=== PATIENT | female | born 1990 | race Caucasian/White ===

== ENCOUNTER 2021-03-07 09:11 | Emergency (ER) | payer BC ==
[~2021-03-07] VITALS: Ht 162.5 cm; Wt 95.3 kg
[~2021-03-07 09:11] MED LIST: ALBU8.5H2 IH; D-ME118S33 PO
[2021-03-07] MEDS ORDERED: LACTATED RINGERS 1,000 ML IV ONE (10:15)
[2021-03-07] MEDS ORDERED: ONDANSETRON 4 MG/2 ML (SDV) Z0FRAN IVP ONE (10:30)
[2021-03-07 10:36] LABS: CLARITY,URINE CLEAR; COLOR,URINE YELLOW; GLUCOSE, URINE (UA) NEGATIVE (NEGATIVE); KETONES,URINE 2+ (NEGATIVE); LEUKOCYTE ESTERASE ,URINE TRACE (NEGATIVE); NITRITE,URINE NEGATIVE (NEGATIVE); PROTEIN,URINE TRACE (NEGATIVE)
[2021-03-07 10:48] LABS: BASOPHILS # (AUTO) 0.1 10^3/uL (0.0-0.1); BASOPHILS % (AUTO) 0 % (0-10); EOSINOPHILS % (AUTO) 0 % (0-10); HEMATOCRIT 43 % (35-52); HEMOGLOBIN 14.8 g/dL (11.5-16.0); LYMPHOCYTES # (AUTO) 1.2 10^3/uL (1.0-4.0); LYMPHOCYTES % (AUTO) 10 % (12-44); MEAN CORPUSCULAR HEMOGLOBIN 28 pg (25-34); MEAN CORPUSCULAR HGB CONC 35 g/dL (32-36); MEAN CORPUSCULAR VOLUME 81 fL (80-99); MONOCYTES # (AUTO) 0.5 10^3/uL (0.0-1.0); MONOCYTES % (AUTO) 4 % (0-12); NEUTROPHILS # (AUTO) 10.4 10^3/uL (1.8-7.8); NEUTROPHILS % (AUTO) 85 % (42-75); PLATELET COUNT 243 10^3/uL (130-400); WHITE BLOOD COUNT 12.2 10^3/uL (4.3-11.0)
[2021-03-07 10:50] LABS: AMORPHOUS SEDIMENT,UR FEW AMOR URATES /LPF; BACTERIA,URINE MODERATE /HPF; BILIRUBIN,URINE 1+ (NEGATIVE); RBC,URINE RARE /HPF
--- NOTE | 2021-03-07 10:52 | ED General ---
General Chief Complaint: General Problems/Pain Stated Complaint: RLQ PAIN, N/V, DEHYDRATION- 7 WKS Nursing Triage Note: PT REPORTS N/V, UNABLE TO KEEP ANYTHING DOWN, CONSTIPATION, 7 WEEKS , ABDOMINAL PAIN, DIZZINESS, WEAKNESS. Source of Information: Patient Exam Limitations: No Limitations History of Present Illness Date Seen by Provider: Mar 07, 2021 Time Seen by Provider: 10:50 Initial Comments Patient is 7 weeks gestation G1, P0. She is had intrauterine confirmed at Dr. [facility]cock[facility] clinic. She presents with nausea and vomiting for the past 3 weeks despite use of pyridoxine and doxylamine. No abdominal pain or vaginal bleeding and she is been unable to eat anything for a couple of days because of the intense nausea. Timing/Duration: 1-2 Days Severity: Moderate Associated Systoms: Denies Symptoms Allergies and Home Medications Allergies Coded Allergies: No Known Drug Allergies (Unverified , 08/30/14) Home Medications Albuterol 8.5 Gm Hfa.aer.ad, 2 PUFF IH Q4H PRN for SHORTNESS OF BREATH 1 PUFFS Prescribed by: FAUZIA DIXON on 08/30/14 1100 Cefuroxime Axetil 500 Mg Tablet, 500 MG PO BID Prescribed by: FAUZIA DIXON on 03/07/21 1201 D-Methorphan Hb/P-Epd Hcl/Bpm 118 Ml Syrup, 5-10 ML PO Q6H PRN for COUGH Prescribed by: FAUZIA DIXON on 08/30/14 1059 Ondansetron 8 Mg Tab.rapdis, 8 MG PO TID Prescribed by: FAUZIA DIXON on 03/07/21 1201 Patient Home Medication List Home Medication List Reviewed: Yes Review of Systems Review of Systems Constitutional: see HPI EENTM: see HPI Respiratory: no symptoms reported Cardiovascular: no symptoms reported Gastrointestinal: nausea, vomiting Genitourinary: no symptoms reported Musculoskeletal: no symptoms reported Skin: no symptoms reported Psychiatric/Neurological: No Symptoms Reported Hematologic/Lymphatic: No Symptoms Reported Immunological/Allergic: no symptoms reported Past Mgcrsqd-Toxdch-Psxpog Hx Patient Social History Tobacco Use?: No Substance use?: No Pt feels they are or have been: No Immunizations Up To Date First/Initial COVID19 Vaccinat: OCTOBER 2020 Second COVID19 Vaccination [place]: NOVEMBER 2020 COVID19 Vaccine 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 oz. 83.958493wq; 36.00 BMI Method: General Appearance: No Apparent Distress, WD/WN Eyes: Bilateral Eye Normal Inspection, Bilateral Eye PERRL, Bilateral Eye EOMI Neck: Full Range of Motion, Normal Inspection Respiratory: No Accessory Muscle Use, No Respiratory Distress Cardiovascular: Regular Rate, Rhythm, Normal Peripheral Pulses Gastrointestinal: Normal Bowel Sounds, Non Tender, Soft Extremity: Normal Capillary Refill, Normal Inspection Neurologic/Psychiatric: Alert, Oriented x3 Skin: Normal Color, Warm/Dry Progress/Results/Core Measures Suspected Sepsis SIRS Temperature: Pulse: 67 Respiratory Rate: 16 Laboratory Tests 03/07/21 10:42: White Blood Count 12.2H Blood Pressure 134 /89 Mean: 104 Laboratory Tests 03/07/21 10:42: Creatinine 0.82, Platelet Count 243, Total Bilirubin 0.7 Results/Orders Lab Results Laboratory Tests Test 03/07/21 10:33 03/07/21 10:42 Range/Units Urine Color YELLOW Urine Clarity CLEAR Urine pH 6.0 5-9 Urine Specific [place] >=1.030 1.016-1.022 Urine Protein TRACE H NEGATIVE Urine Glucose (UA) NEGATIVE NEGATIVE Urine Ketones 2+ H NEGATIVE Urine Nitrite NEGATIVE NEGATIVE Urine Bilirubin 1+ H NEGATIVE Urine Urobilinogen 0.2 < = 1.0 MG/DL Urine Leukocyte Esterase TRACE H NEGATIVE Urine RBC (Auto) NEGATIVE NEGATIVE Urine RBC RARE /HPF Urine WBC 5-10 H /HPF Urine Squamous Epithelial Cells 10-25 H /HPF Urine Crystals PRESENT H /LPF Urine Amorphous Sediment FEW CHIKA URATES H /LPF Urine Bacteria MODERATE H /HPF Urine Casts NONE /LPF Urine Mucus MODERATE H /LPF Urine Culture Indicated YES White Blood Count 12.2 H 4.3-11.0 10^3/uL Red Blood Count 5.28 H 3.80-5.11 10^6/uL Hemoglobin 14.8 11.5-16.0 g/dL Hematocrit 43 35-52 % Mean Corpuscular Volume 81 80-99 fL Mean Corpuscular Hemoglobin 28 25-34 pg Mean Corpuscular Hemoglobin Concent 35 32-36 g/dL Red Cell Distribution Width 13.2 10.0-14.5 % Platelet Count 243 130-400 10^3/uL Mean Platelet Volume 12.0 9.0-12.2 fL Immature Granulocyte % (Auto) 0 % Neutrophils (%) (Auto) 85 H 42-75 % Lymphocytes (%) (Auto) 10 L 12-44 % Monocytes (%) (Auto) 4 0-12 % Eosinophils (%) (Auto) 0 0-10 % Basophils (%) (Auto) 0 0-10 % Neutrophils # (Auto) 10.4 H 1.8-7.8 10^3/uL Lymphocytes # (Auto) 1.2 1.0-4.0 10^3/uL Monocytes # (Auto) 0.5 0.0-1.0 10^3/uL Eosinophils # (Auto) 0.0 0.0-0.3 10^3/uL Basophils # (Auto) 0.1 0.0-0.1 10^3/uL Immature Granulocyte # (Auto) 0.1 0.0-0.1 10^3/uL Sodium Level 137 135-145 MMOL/L Potassium Level 3.7 3.6-5.0 MMOL/L Chloride Level 106 98-107 MMOL/L Carbon Dioxide Level 20 L 21-32 MMOL/L Anion Gap 11 5-14 MMOL/L Blood Urea Nitrogen 9 7-18 MG/DL Creatinine 0.82 0.60-1.30 MG/DL Estimat Glomerular Filtration Rate 82 BUN/Creatinine Ratio 11 Glucose Level 95 70-105 MG/DL Calcium Level 10.4 H 8.5-10.1 MG/DL Corrected Calcium 10.1 8.5-10.1 MG/DL Total Bilirubin 0.7 0.1-1.0 MG/DL Aspartate Amino Transf (AST/SGOT) 13 5-34 U/L Alanine Aminotransferase (ALT/SGPT) 11 0-55 U/L Alkaline Phosphatase 52 40-136 U/L Total Protein 8.0 6.4-8.2 GM/DL Albumin 4.4 3.2-4.5 GM/DL My Orders Orders - FAUZIA DIXON APRN Ceftriaxone (Rocephin) (03/07/21 11:15) Promethazine Injection (Phenergan Injec (03/07/21 12:30) Normal Saline 500 Ml Iv (03/07/21 12:30) Medications Given in ED Current Medications Medications Dose Ordered Sig/Javi Route Start Time Stop Time Status Last Admin Dose Admin Lactated Ringer's 1,000 ml @ 0 mls/hr Q0M ONCE IV 03/07/21 10:15 03/07/21 10:16 DC 03/07/21 10:42 1,000 MLS/HR Ondansetron HCl 8 mg ONCE ONCE IVP 03/07/21 10:30 03/07/21 10:32 DC 03/07/21 10:42 8 MG Vital Signs/I&O 03/07/21 09:50 Temp 36.8 Pulse 67 Resp 16 B/P (MAP) 134/89 (104) Pulse Ox 100 Capillary Refill : Blood Pressure Mean: 104 Departure Impression Primary Impression: Nausea and vomiting during Additional Impression: Urinary tract infection Disposition: 01 HOME, SELF-CARE Condition: Stable Departure-Patient Inst. Decision time for Depature: 11:59 Referrals: ZAHRA BABCOCK MD (PCP/Family) Primary Care Physician Patient Instructions: Nausea and Vomiting, Adult ED Add. Discharge Instructions: . Meds as directed 2. Follow-up with your doctor next week 3. All discharge instructions reviewed with patient and/or family. Voiced understanding. Scripts Promethazine HCl (Promethazine Suppository) 12.5 Mg Supp.rect 12.5 MG RC Q6H PRN for NAUSEA/VOMITING, #10 SUPP.RECT Prov: FAUZIA DIXON APRN 03/07/21 Ondansetron (Ondansetron Odt) 8 Mg Tab.rapdis 8 MG PO TID, #10 TAB Prov: FAUZIA DIXON APRN 03/07/21 Cefuroxime Axetil (Cefuroxime) 500 Mg Tablet 500 MG PO BID, #10 TAB Prov: FAUZIA DIXON APRN 03/07/21 Work/School Note: Work Release Form Date Seen in the Emergency Department: Mar 07, 2021 Return to Work: Mar 09, 2021 FAUZIA DIXON APRN Mar 07, 2021 10:52
[2021-03-07] MEDS ORDERED: cefTRIAXone 1,000 MG in WATER (STERILE) FOR INJECTION 10 ML IV ONE (11:15)
[2021-03-07 11:41] LABS: ALBUMIN 4.4 GM/DL (3.2-4.5); BILIRUBIN,TOTAL 0.7 MG/DL (0.1-1.0); CALCIUM 10.4 MG/DL (8.5-10.1); CREATININE SERUM 0.82 MG/DL (0.60-1.30); POTASSIUM 3.7 MMOL/L (3.6-5.0)
[2021-03-07] MEDS ORDERED: ONDA8TAB13 PO (12:01)
[2021-03-07] MEDS ORDERED: CEFU500T63 PO (12:01)
[2021-03-07] MEDS ORDERED: PROM12.566 RC (12:19)
[2021-03-07] MEDS ORDERED: PROMETHAZINE INJ 25 MG/ML (PHENERGAN) AMP IVP ONE (12:30)
[2021-03-07] MEDS ORDERED: NS IV 500 ML 500 ML IV SCH (12:30)
[2021-03-07 13:15] VITALS: BP 128/80
== END 2021-03-07 13:15 | disposition home or self-care (01) ==
LOC: EDUNIT# 09:11 → ER 09:15
DX: O21.0 Mild hyperemesis gravidarum (principal); O23.41 Unspecified infection of urinary tract in pregnancy, first trimester; Z3A.01 Less than 8 weeks gestation of pregnancy
CPT/HCPCS: 36415; 80053; 81000; 84703; 85025; 87088

== ENCOUNTER → 2021-06-10 | Outpatient (CLI) | payer BC ==
[~2021-06-10] MED LIST changes: +CEFU500T63 PO; +ONDA8TAB13 PO; +PROM12.566 RC
--- NOTE | 2021-06-10 14:46 | Diagnostic Imaging Report ---
INDICATION: survey. TECHNIQUE: Multiple real-time grayscale images were obtained over the gravid uterus. COMPARISON: None. FINDINGS: There is a single live fetus in a cephalic presentation. heart rate was recorded at 142 bpm. Placenta is anterior and appears to be in a marginal location. Amniotic fluid volume is normal. Cervical length is 4.3 cm. kidneys, bladder and stomach are unremarkable. There is a four-chamber heart. There is a 3 vessel cord and normal insertion. brain and spinal anatomy is suboptimal due to position. Biometrical measurements are as follows: Biparietal 4.60 cm, age 20 weeks 0 days. Head circumference 18.07 cm, age 20 weeks 4 days. Abdominal circumference 15.91 cm, age 21 weeks 1 days. Femur length 3.49 cm, age 21 weeks 1 days. Sonographic estimate age: 20 weeks 5 days. Sonographic estimated date of delivery: 10/23/2021. Estimated Weight: 387 gm (+/- 57 gm). LMP percentile: 65%. heart rate: 142 beats per minute. number: 1 of 1. IMPRESSION: Single live IUP 20 weeks 5 days gestational age with estimated date of confinement sonographically of 10/23/2021. There does appear to be a marginal placenta previa. In addition, head and spine anatomy with is suboptimal due to position. Follow-up ultrasound in the later 2nd or early 3rd trimester could be performed for further evaluation. Dictated by: Dictated on workstation # [id number]
== END ==
LOC: RAD 10:00
PROVIDERS: ATTEND Obstetrics & Gynecology
DX: Z34.02 Encounter for supervision of normal first pregnancy, second trimester (principal); Z3A.20 20 weeks gestation of pregnancy
CPT/HCPCS: 76805

== ENCOUNTER → 2021-07-27 | Outpatient (CLI) | payer BC ==
--- NOTE | 2021-07-27 15:14 | Diagnostic Imaging Report ---
INDICATION: Follow-up anatomy and low-lying placenta. TECHNIQUE: Multiple real-time grayscale images were obtained over the gravid uterus. COMPARISON: 06/10/2021. FINDINGS: There is a single live fetus in a cephalic presentation. heart rate was recorded at 150 BPM. Placenta is anterior. Placenta is no longer in a low-lying position. Placental tip is now located approximately 7 cm from the internal cervical os. Cervical length is 4.7 cm. brain and spine anatomy was better visualized today and unremarkable. IMPRESSION: Unremarkable follow-up obstetrical ultrasound. There is no longer evidence of marginal placenta previa. Additional anatomy was better visualized today and unremarkable. Dictated by: Dictated on workstation # [id number]
== END ==
LOC: RAD 14:00
PROVIDERS: ATTEND Obstetrics & Gynecology
DX: O44.22 Partial placenta previa NOS or without hemorrhage, second trimester (principal)
CPT/HCPCS: 76816

== ENCOUNTER 2021-10-17 06:00 | Inpatient (IN) | payer BC ==
[~2021-10-17] VITALS: Ht 162.6 cm; Wt 114.3 kg
[2021-10-17] VITALS (58 sets, daily range): BP systolic 103–142; BP diastolic 52–88
[2021-10-17] MEDS ORDERED: MINERAL OIL 30 ML OIL TOP PRN (07:00)
[2021-10-17] MEDS ORDERED: OXYTOCIN PRE-MIX DRIP 500 ML IV SCH ×2 (07:00→17:45)
--- NOTE | 2021-10-17 07:08 | History & Physical-OB ---
OB - Chief Complaint & HPI Date/Time Date of Admission: Date of Admission: Oct 17, 2021 at 06:01 Date seen by a Provider: Oct 17, 2021 Time Seen by a Provider: 06:40 Chief Complaint/History OB-Reason for Admission/Chief: Induction of Labor Hx : 1 Hx Para: 0 Expected Date of Delivery: Oct 24, 2021 Gestational Age in Weeks: 39 Indication for induction: other Admission Nurse Assessment Rev: Yes History of Labs GBS negative Allergies and Home Medications Allergies Coded Allergies: No Known Drug Allergies (Unverified , 08/30/14) Patient Home Medication List Home Medication List Reviewed: Yes Albuterol (Proair Hfa) 8.5 Gm Hfa.aer.ad, 2 PUFF IH Q4H PRN for SHORTNESS OF BREATH Prescribed by: FAUZIA DIXON on 08/30/14 1100 Cefuroxime Axetil (Cefuroxime) 500 Mg Tablet, 500 MG PO BID Prescribed by: FAUZIA DIXON on 03/07/21 1201 D-Methorphan Hb/P-Epd Hcl/Bpm (Bromfed Dm Cough Syrup) 118 Ml Syrup, 5-10 ML PO Q6H PRN for COUGH Prescribed by: FAUZIA DIXON on 08/30/14 1059 Ondansetron (Ondansetron Odt) 8 Mg Tab.rapdis, 8 MG PO TID Prescribed by: FAUZIA DIXON on 03/07/21 1201 Promethazine HCl (Promethazine Suppository) 12.5 Mg Supp.rect, 12.5 MG RC Q6H PRN for NAUSEA/VOMITING Prescribed by: FAUZIA DIXON on 03/07/21 1219 OB - History Hx of Present Care: Yes Ultrasounds: Normal mid trimester US Obstetrical Complications: None Medical Complications: None Patient Past Medical History No chronic medical problems Immunizations First/Initial COVID19 Vaccine: OCTOBER 2020 Second COVID19 Vaccination: NOVEMBER 2020 OB - Admission Exam Physical Exam Vitals: Vital Signs 10/17/21 06:55 Temp 36.6 Pulse 74 Resp 18 B/P (MAP) 105/65 (78) Pulse Ox 98 O2 Delivery Room Air HEENT: Moist Membranes Heart: Rhythm Normal Lungs: Clear Abdomen: Gravid Extremities: Normal Cervical Dilatation: 2cm Effacement: 50% Station: -3 Membranes: Intact Heart Rate: 140's Accelerations: Accelerations Present Decelerations: No Decelerations Short Term Variability: Present Fdc Variability: Average (6-25) Contractions on Admission: >10 Minutes Apart Intensity: Mild Bautista Scoring Tool (Modified) Dilation (cm): 1-2cm (1) Effacement (%): 31-51% (1) Descent/Station: -3 (0) Cervix Consistency: Medium(1) Cervix Position: Middle/Mid-Position (1) Bautista Score: 4 OB - Assessment/Plan/Diagnosis Assessment Assessment: induction of labor Admission Dx 1. IUP at term 39 weeks Admission Status: Inpatient Order (span 2 midnights) Reason for Inpatient Admission: Induction of labor. Plan Plan: Induction Induction Method: AROM Other Plan -desires epidural -pitocin as necessary AILYN WHITLOCK MD Oct 17, 2021 07:07
[2021-10-17 07:09] LABS: BASOPHILS % (AUTO) 0 % (0-10); EOSINOPHILS # (AUTO) 0.1 10^3/uL (0.0-0.3); EOSINOPHILS % (AUTO) 0 % (0-10); HEMATOCRIT 33 % (35-52); HEMOGLOBIN 10.9 g/dL (11.5-16.0); LYMPHOCYTES # (AUTO) 1.5 10^3/uL (1.0-4.0); LYMPHOCYTES % (AUTO) 13 % (12-44); MEAN CORPUSCULAR HEMOGLOBIN 28 pg (25-34); MEAN CORPUSCULAR HGB CONC 33 g/dL (32-36); MEAN CORPUSCULAR VOLUME 83 fL (80-99); MONOCYTES # (AUTO) 0.6 10^3/uL (0.0-1.0); MONOCYTES % (AUTO) 5 % (0-12); NEUTROPHILS # (AUTO) 9.1 10^3/uL (1.8-7.8); NEUTROPHILS % (AUTO) 80 % (42-75); PLATELET COUNT 179 10^3/uL (130-400); WHITE BLOOD COUNT 11.3 10^3/uL (4.3-11.0)
[2021-10-17] MEDS: D5 LR IV SOLUTION 1,000 ML IV SCH ×2 (07:29→16:12)
[2021-10-17] MEDS ORDERED: fentaNYL 2 mcg/ml BUPIVA 0.125 100 ML ONE (08:27)
[2021-10-17] MEDS ORDERED: fentaNYL INJ 100 MCG/2 ML AMP ONE (08:49)
[2021-10-17] MEDS ORDERED: BUPIVACAINE 0.25% 10 ML (SENSORCAINE) VIAL ONE (08:49)
[2021-10-17] MEDS: EPIDURAL (fentaNYL 2 MCG/ML BUPIVA 0.125%)100 ML BAG EPI PRN ×2 (09:13→16:19)
[2021-10-17] MEDS ORDERED: ONDANSETRON 4 MG/2 ML (SDV) Z0FRAN IV PRN (09:30)
[2021-10-17] MEDS ORDERED: NALOXONE 0.4 MG/ML 1 ML (NARCAN) VIAL IV PRN ×2 (09:30→17:45)
[2021-10-17] MEDS ORDERED: diphenhydrAMINE 50 MG/ML INJ (BENADRYL) IV PRN (09:30)
[2021-10-17] MEDS ORDERED: LACTATED RINGERS 1,000 ML IV SCH (09:30)
[2021-10-17] MEDS ORDERED: CATHETER FLUSH 10 ML SYR IV SCH ×2 (14:00→22:00)
[2021-10-17] MEDS ORDERED: MEPIVACAINE (CARBOCAINE) 2% 50 ML VIAL ONE (16:37)
[2021-10-17] MEDS ORDERED: MINERAL OIL CONCENTRATE 99.9% 15 ML UDC ONE (17:00)
[2021-10-17] MEDS ORDERED: MEASLES,MUMPS,RUBELLA 1 EA INJ SQ ONE (17:45)
[2021-10-17] MEDS ORDERED: WITCH HAZEL(TUCKS) 40 EA JAR TOP PRN (17:45)
[2021-10-17] MEDS ORDERED: TETANUS,DIPTH,PERTUSS P/F (BOOSTRIX) 0.5 ML VIAL IM ONE (17:45)
[2021-10-17] MEDS ORDERED: BENZOCAINE/MENTHOL (DERMOPLAST) 56 ML CAN TP PRN (17:45)
--- NOTE | 2021-10-17 17:53 | OB Labor & Delivery Record ---
L&D History Date of Service Date of Service: Oct 17, 2021 History Expected Date of Delivery: Oct 24, 2021 Gestational Age in Weeks: 39 Hx : 1 Hx Para: 1 Complications Events: Routine care Operative Indications (Cesarea: N/A-Vaginal Delivery Intrapartal Events: None L&D Stage1 Stage One Onset of Labor - Date: Oct 17, 2021 Onset of Labor - Time: 06:40 Monitors and Tracing Monitor Mode: Internal Heart Rate: 130 Monitor Accelerations: Uniform Monitor Decelerations: None Station: -3 Penitentiary Variability: Average (6-10) Short Term Variability: Present Presentation: Vertex Vital Signs VS - Last 72 Hours, by Label 10/17/21 10/17/21 10/17/21 10/17/21 06:55 07:52 08:10 08:25 Temp 36.6 36.6 Pulse 74 74 89 74 Resp 18 16 18 20 B/P (MAP) 105/65 (78) 108/62 (77) 131/74 (93) 128/67 (87) Pulse Ox 98 99 99 98 O2 Delivery Room Air Room Air 10/17/21 10/17/21 10/17/21 10/17/21 09:00 09:03 09:06 09:11 Pulse 95 92 68 83 Resp 18 16 20 16 B/P (MAP) 133/71 (91) 130/72 (91) 126/74 (91) 104/57 (73) Pulse Ox 98 100 98 97 10/17/21 10/17/21 10/17/21 10/17/21 09:15 09:19 09:22 09:25 Pulse 67 72 66 71 Resp 14 18 18 16 B/P (MAP) 107/52 (70) 108/59 (75) 107/57 (74) 103/65 (78) Pulse Ox 100 99 99 93 10/17/21 10/17/21 10/17/21 10/17/21 09:28 09:31 09:35 09:43 Pulse 70 65 67 85 Resp 15 18 B/P (MAP) 103/56 (72) 103/56 (72) 109/63 (78) 110/69 (83) Pulse Ox 100 100 10/17/21 10/17/21 10/17/21 10/17/21 09:47 09:52 09:56 10:01 Pulse 70 79 81 74 B/P (MAP) 111/56 (74) 120/58 (78) 112/61 (78) 106/59 (75) 10/17/21 10/17/21 10/17/21 10/17/21 10:08 10:12 10:17 10:48 Temp 36.8 Pulse 73 65 66 68 Resp 14 B/P (MAP) 109/62 (78) 105/60 (75) 106/60 (75) 108/73 (85) Pulse Ox 98 99 O2 Delivery Room Air 10/17/21 10/17/21 10/17/21 10/17/21 11:04 11:18 11:34 11:49 Pulse 65 68 62 64 B/P (MAP) 109/57 (74) 116/68 (84) 110/62 (78) 113/70 (84) 10/17/21 10/17/21 10/17/21 10/17/21 12:03 12:18 12:35 12:48 Temp 36.9 Pulse 63 71 76 66 Resp 16 B/P (MAP) 113/67 (82) 125/69 (87) 130/70 (90) 117/70 (86) O2 Delivery Room Air 10/17/21 10/17/21 10/17/21 10/17/21 13:05 13:32 13:47 14:03 Pulse 60 73 71 73 B/P (MAP) 123/60 (81) 136/71 (92) 119/63 (81) 111/68 (82) 10/17/21 10/17/21 10/17/21 10/17/21 14:18 14:33 15:00 15:15 Temp 36.8 Pulse 77 79 77 68 Resp 14 B/P (MAP) 115/58 (77) 118/70 (86) 124/78 (93) 123/68 (86) O2 Delivery Room Air Signs of Distress by FHT Signs of Distress none Rupture of Membranes Spontaneous Ruture of Membrane: No Amniotic Membrane Rupture Time: 0640 Amniotic Membrane Fluid Desc.: Clear Vaginal Bleeding Description: None Induction/Anesthesia Epidural Cath Placement - Time: 0903 L&D Stage2 Stage Two Stage II Date: Oct 17, 2021 Stage II Time: 17:21 Monitors and Tracing Monitor Mode: Internal Heart Rate: 140 Monitor Accelerations: Uniform Monitor Decelerations: None Fusing Machine Tender Variability: Average (6-10) Short Term Variability: Present Position: Left Occiput Anterior Presentation: Vertex Signs of Distress by FHT Signs of Distress none Cord Descript/Complications Cord Vessel Description: 3 Vessels Delivery Type Delivery Method: Spontaneous Vaginal Anterior Shoulder: Left Episiotomy/Perineal Laceration Laceraction(s)/Extensions: Yes Episiotomy Description: Midline Sutures Used: Vicryl Condition of Infant Delivery 1 minute Comment: 8 5 minute Comment: 9 Condition of Condition of : Living Exam: No Observed Abnormalities Resuscitation Resuscitation: N/A - Spontaneous Resp L&D Stage3 Stage Three Stage III Date: Oct 17, 2021 Stage III Time: 17:27 Pictocin Pitocin Administration mu/min: 14 Pitocin ml/hr: 14 Placenta Delivery Placenta Delivery: Spontaneous Delivery Summary Summary Estimated blood loss (mL): 200 Condition of Delivery Examined: Cervix Examined Post Hemorrhage: No Intervention Required none AILYN WHITLOCK MD Oct 17, 2021 17:53
[2021-10-17] MEDS: IBUPROFEN 600 MG (MOTRIN) TAB PO SCH (19:24)
[2021-10-18 03:07] VITALS: BP 133/89
[2021-10-18] MEDS: IBUPROFEN 600 MG (MOTRIN) TAB PO SCH ×3 (03:08→15:21)
[2021-10-18] MEDS: ACETAMINOPHEN 500 MG TAB (TYLENOL) PO SCH ×4 (04:32→16:00)
[2021-10-18 06:14] LABS: BASOPHILS % (AUTO) 0 % (0-10); EOSINOPHILS % (AUTO) 0 % (0-10); HEMATOCRIT 28 % (35-52); HEMOGLOBIN 9.2 g/dL (11.5-16.0); LYMPHOCYTES # (AUTO) 1.7 10^3/uL (1.0-4.0); LYMPHOCYTES % (AUTO) 12 % (12-44); MEAN CORPUSCULAR HEMOGLOBIN 28 pg (25-34); MEAN CORPUSCULAR HGB CONC 33 g/dL (32-36); MEAN CORPUSCULAR VOLUME 84 fL (80-99); MEAN PLATELET VOLUME 12.4 fL (9.0-12.2); MONOCYTES # (AUTO) 0.7 10^3/uL (0.0-1.0); MONOCYTES % (AUTO) 5 % (0-12); NEUTROPHILS # (AUTO) 11.4 10^3/uL (1.8-7.8); NEUTROPHILS % (AUTO) 82 % (42-75); PLATELET COUNT 157 10^3/uL (130-400)
--- NOTE | 2021-10-18 07:15 | Discharge Inst-Women's Service ---
Discharge Inst-Women's Serv Depart Medication/Instructions New, Converted or Re-Newed RX: Other (none transmitted) Instructions Continue with vitamin for 1 month. May have tylenol or ibuprofen for discomfort. Use Ibuprofen over the counter 2-3 tabs every 6 hours for cramps or pain Problems Reviewed?: Yes Consults/Follow Up Additional Follow Up: Yes (Dr Whitlock in 6 weeks.) Activity Activity: Activity as Tolerated Driving Instructions: No Driving for 1 Week Nothing Inside Vagina: No [place] (for 6 weeks.) Diet Discharge Diet: Regular Diet Return to The Hospital For: as below Symptoms to Report to : Bleeding Excessive, Pain Increased, Fever Over 101 Degrees F, Vaginal Discharge Foul For Any Problems or Questions: Contact Your Physician AILYN WHITLOCK MD Oct 18, 2021 07:15
--- NOTE | 2021-10-18 07:21 | Discharge Summary ---
Diagnosis/Chief Complaint Date of Admission Oct 17, 2021 at 06:01 Date of Discharge Discharge Date: Oct 18, 2021 Discharge Time: 1800 Admission Diagnosis Admission Diagnosis 1. Intrauterine at 39 weeks gestation Discharge Diagnosis 1. Intrauterine at 39 weeks gestation 2. Anemiapregnancy related Reason Hospital Visit 31-year-old 1 now term 1 who initially presented to labor and delivery at 39 weeks gestation for induction of labor in the morning of October 17, 2021. Patient had due date of October 24, 2021. care essentially unremarkable. Group B strep status was negative at 36 weeks Discharge Summary-OBS Procedures 1. Epidural per anesthesia 2. Spontaneous vaginal delivery 3. Repair of midline episiotomy Discharge Physical Examination Allergies: Coded Allergies: No Known Drug Allergies (Unverified , 08/30/14) Vitals & I&Os Vital Signs Date Time Temp Pulse Resp B/P (MAP) Pulse Ox O2 Delivery O2 Flow Rate FiO2 10/18/21 03:07 65 18 133/89 (104) 100 Room Air 10/17/21 23:35 36.7 General Appearance: Alert Respiratory: Clear to Auscultation Cardiovascular: Regular Rate Abdominal: Soft (with uterus firm) Hospital Course Was the Problem List Reviewed?: Yes following admission on October 17, 2021 patient underwent routine antepartum orders. She received amniotomy in the a.m. of October 17, 2021. She required Pitocin augmentation. Also epidural was given in the morning by anesthesia and patient had excellent pain relief. Once the completion she was allowed to push and eventually she delivered over a midline episiotomy a term viable female. received Apgars of 8 at 1 minute and 9 at 5 minutes. Following delivery patient underwent routine care orders. She complained of slight tenderness of the perineum in the morning of October 18. Her bleeding was well controlled. Hemoglobin noted to be 9.2 compared to admission of 10.9. Ultimately she was felt ready for dismissal in the early evening of October 18, 2021. She will follow-up with Dr. Whitlock in 6 weeks. Pending Labs Laboratory Tests 10/18/21 05:28: White Blood Count 14.0, Red Blood Count 3.29, Hemoglobin 9.2, Hematocrit 28, Mean Corpuscular Volume 84, Mean Corpuscular Hemoglobin 28, Mean Corpuscular Hemoglobin Concent 33, Red Cell Distribution Width 14.4, Platelet Count 157, Mean Platelet Volume 12.4, Immature Granulocyte % (Auto) 1, Neutrophils (%) (Auto) 82, Lymphocytes (%) (Auto) 12, Monocytes (%) (Auto) 5, Eosinophils (%) (Auto) 0, Basophils (%) (Auto) 0, Neutrophils # (Auto) 11.4, Lymphocytes # (Auto) 1.7, Monocytes # (Auto) 0.7, Eosinophils # (Auto) 0.0, Basophils # (Auto) 0.0, Immature Granulocyte # (Auto) 0.1 Discharge Instructions to patient/family Please see electronic discharge instructions given to patient. Discharge Medications Reviewed and agree with Discharge Medication list on patient's Discharge Instruction sheet AILYN WHITLOCK MD Oct 18, 2021 07:21
--- NOTE | 2021-10-18 07:50 | Anesthesia-Regional Post-Op ---
Regional Patient Condition Mental Status: Alert, Oriented x3 Circulation: Same as Pre-Op Headache: Absent Sensation: Full Recovery Motor Block: Absent Post Op Complications Complications None Follow Up Care/Instructions Patient Instructions None needed. Anesthesia/Patient Condition Patient is doing well, no complaints, stable vital signs, no apparent adverse anesthesia problems. No complications reported per nursing. D/C home per [facility] Criteria: Yes THEO WILDER CRNA Oct 18, 2021 07:50
[2021-10-18] MEDS: DOCUSATE SODIUM 100 MG (COLACE) CAP PO SCH ×2 (09:00→09:14)
[2021-10-18 09:16] VITALS: BP 118/64
[2021-10-18 13:46] VITALS: BP 120/65
[2021-10-18 18:50] VITALS: BP 120/65
== END 2021-10-18 18:50 | disposition home or self-care (01) | DRG 807 ==
LOC: LDRP 06:01
PROVIDERS: ADMIT Family Medicine; ATTEND Family Medicine
PROC: 10E0XZZ Delivery of Products of Conception, External Approach (ICD-10-PCS; principal; 2021-10-17)
PROC: 0W8NXZZ Division of Female Perineum, External Approach (ICD-10-PCS; 2021-10-17)
PROC: 10907ZC Drainage of Amniotic Fluid, Therapeutic from Products of Conception, Via Natural or Artificial Opening (ICD-10-PCS; 2021-10-17)
DX: O99.02 Anemia complicating childbirth (principal); Z37.0 Single live birth; D64.9 Anemia, unspecified; Z3A.39 39 weeks gestation of pregnancy
CPT/HCPCS: 36415; 85025; 86850; 86900; 86901

== ENCOUNTER 2022-01-18 07:37 | Outpatient (CLI) | payer BC ==
[~2022-01-18] VITALS: Ht 162.6 cm; Wt 108.4 kg
[2022-01-19] MEDS ORDERED: OMEP20CA18 PO (10:05)
[2022-01-19] MEDS ORDERED: FLUT9.9S NS (10:05)
[2022-01-19] MEDS ORDERED: CETI10CA PO (10:05)
[2022-01-19] MEDS ORDERED: FAMO-144 PO (10:05)
== END 2022-01-19 10:06 | disposition home or self-care (01) ==
LOC: PREOP 07:37
PROVIDERS: ATTEND Surgery
DX: Z01.818 Encounter for other preprocedural examination (principal)